=== PATIENT | female | born 1980 | race African-American/Black ===

== ENCOUNTER 2023-07-11 04:44 | Day surgery (SDC) | payer OTHER ==
[2023-07-09 11:53] VITALS: BMI 28.9
[2023-07-11 11:59] VITALS: TEMP 98.2
[2023-07-11 12:23] VITALS: PULSE 72
[2023-07-11 12:27] VITALS: BP 124/93; RESP 18
== END 2023-07-11 13:16 | disposition home or self-care (01) ==
LOC: JASU-ENDO 04:44
PROVIDERS: ATTEND Internal Medicine Gastroenterology
PROC: 0DJD8ZZ Inspection of Lower Intestinal Tract, Via Natural or Artificial Opening Endoscopic (ICD-10-PCS; principal; 2023-07-11 11:20)
DX: Z12.11 Encounter for screening for malignant neoplasm of colon (principal); K64.8 Other hemorrhoids; Z83.718 Family history of other colon polyps
CPT/HCPCS: 81025